=== PATIENT | female | born 1930 | race Caucasian/White ===

== ENCOUNTER 2018-05-03 17:44 | Inpatient (IN) | payer MEDICARE, OTHER ==
[~2018-05-03] VITALS: Ht 157.5 cm; Wt 72.6 kg
--- NOTE | 2018-05-03 18:12 | NUR ---
KEVIN MULLER SPOKE TO PT SISTER(SHANAE).
[2018-05-03] MEDS ORDERED: CARV6.252 PO (18:15)
[2018-05-03] MEDS ORDERED: TRAM50TA2 PO (18:15)
[2018-05-03] MEDS ORDERED: ONDA4TAB11 PO (18:15)
[2018-05-03] MEDS ORDERED: LISI2.5T2 PO (18:15)
[2018-05-03] MEDS ORDERED: LEVE500T9 PO (18:15)
[2018-05-03] MEDS ORDERED: ESOM40CA52 PO (18:15)
[2018-05-03] MEDS ORDERED: HUMULIN R SQ (18:15)
[2018-05-03] MEDS ORDERED: SIMV40TA5 PO (18:15)
[2018-05-03] MEDS ORDERED: FURO-151 PO (18:15)
[2018-05-03] MEDS ORDERED: MECL-102 PO (18:15)
[2018-05-03] MEDS ORDERED: FERR325T28 PO (18:15)
[2018-05-03] MEDS ORDERED: INSU100V7 SQ (18:15)
[2018-05-03] MEDS ORDERED: APIX5TAB PO (18:15)
[2018-05-03] MEDS ORDERED: LEVO125T8 PO (18:15)
[2018-05-03 18:21] LABS: BASOPHILS % (AUTO) 0.6 % (0.0-2.0); EOSINOPHILS # (AUTO) 0.1 K/uL (0.0-0.7); EOSINOPHILS % (AUTO) 2.6 % (0.0-7.0); HEMATOCRIT 34.8 % (31.2-41.9); HEMOGLOBIN 11.8 g/dL (10.9-14.3); LYMPHOCYTES # (AUTO) 1.4 K/uL (20.0-40.0); LYMPHOCYTES % (AUTO) 26.3 % (20.5-51.5); MEAN CORPUSCULAR HEMOGLOBIN 30.1 uug (24.7-32.8); MEAN CORPUSCULAR HGB CONC 34 g/dL (32.3-35.6); MONOCYTES # (AUTO) 0.8 K/uL (2.0-10.0); MONOCYTES % (AUTO) 15.7 % (0.0-11.0); NEUTROPHILS # (AUTO) 2.9 K/uL (1.8-8.9); NEUTROPHILS % (AUTO) 54.8 % (38.5-71.5); PLATELET COUNT (AUTO) 137 K/uL (179-408); RED BLOOD CELL COUNT(AUTO) 3.91 MIL/uL (3.63-4.92); WHITE BLOOD COUNT (AUTO) 5.3 K/uL (3.8-11.8)
[2018-05-03 18:24] LABS: *BILIRUBIN,URIN NEGATIVE (NEGATIVE); *BLOOD, URINE 1+ (NEGATIVE); *CLARITY,URINE SLIGHTLY CLOUDY (CLEAR); *COLOR,URINE YELLOW (YELLOW); *KETONES,URINE NEGATIVE (NEGATIVE); *PROTEIN,URINE NEGATIVE (NEGATIVE); *UROBILINOGEN,URINE 0.2 E.U./dl (NORMAL); LEUKOCYTE ESTERASE ,URINE 3+ (NEGATIVE); NITRITE, URINE NEGATIVE (NEGATIVE); UGLUCOSE NEGATIVE (NEGATIVE)
[2018-05-03 18:28] LABS: CARBON DIOXIDE 26 mmol/L (21-32); CHLORIDE 99 mmol/L (98-107); CREATININE 1.2 mg/dL (0.6-1.3); GLUCOSE 168 mg/dL (74-106); POTASSIUM 4.2 mmol/L (3.5-5.1); UREA NITROGEN, BLOOD 14 mg/dL (7-18)
[2018-05-03 18:29] LABS: BACTERIA,URINE FEW /HPF (NONE SEEN); SQUAMOUS EPITHELIAL CELL,UR MODERATE /HPF (NONE SEEN); WBC,URINE 20-50 /HPF (0-3)
--- NOTE | 2018-05-03 19:11 | NUR ---
REPORT TAKEN FROM DAY SHIFT RN. ASSUMING PT CARE AT THIS TIME.
--- NOTE | 2018-05-03 19:15 | NUR ---
DR CANALES SPEAKING TO DR MELTON.
[2018-05-03] MEDS ORDERED: CEFTRIAXONE 1 G in IV DEXTROSE 5% 50 ML IV ONE (19:30)
[2018-05-03] MEDS ORDERED: CEFTRIAXONE 1 G VIAL ONE (19:31)
[2018-05-03 20:17] LABS: NEUTROPHILS % (MANUAL) 51 % (42-75)
[2018-05-03 20:18] LABS: EOSINOPHILS % (MANUAL) 3 % (0-8); LYMPHOCYTES % (MANUAL) 32 % (20-40); MONOCYTES % (MANUAL) 14 % (2-10)
--- NOTE | 2018-05-03 21:06 | NUR ---
REPORT GIVEN TO AUBREY CHACON.
--- NOTE | 2018-05-03 21:33 | NUR ---
Pt. admitted to tele, under care of Dr. gutierrez Belongs List completed
[2018-05-03] MEDS ORDERED: DEXTROSE 50% 50 ML DISP.SYRIN IV PRN (21:45)
[2018-05-03] MEDS ORDERED: ONDANSETRON 4 MG/2 ML VIAL IV PRN (21:45)
[2018-05-03] MEDS ORDERED: ACETAMINOPHEN 325 MG TABLET PO PRN (21:45)
[2018-05-03] MEDS ORDERED: MAGNESIUM HYDROXIDE 30 ML LIQUID UDC PO PRN (21:45)
[2018-05-03] MEDS ORDERED: MECLIZINE HCL 25 MG TABLET PO SCH (21:45)
[2018-05-03] MEDS ORDERED: MELATONIN 3 MG TABLET PO PRN (21:45)
[2018-05-03 21:55] VITALS: BP 134/62
--- NOTE | 2018-05-03 22:00 | NUR ---
RECEIVED PT FROM ER VIA [facility] ACCOMPANIED BY PT'S SISTER,NEWLY ADMISSION W/DX OF UTI,PT'S A/A/O X3;GENERALIZED WEAKNESS,[employer] [place] SPEAKER,ABLT TO UNDERSTAND A LITTLE OF SLOVENIAN,MOSTLY VALHIPOLITO(PT'S SISTER) GAVE INFORMATION. PT C/O UNCOMFORTABLE AT THE RIGHT AC IV SITE,IT'S SECURED FOR IV ABX MD'S ORDER PLUS PT'S VERY HARD STICK(HX OF PICC LINE INSERTION IN THE PAST);EDUCATED TO PT AND HER SISTER BUT PT'S VERY ANXIOUS ON/OFF.TELEMETRY'S APPLIED AT THIS TIME,IT'S A.FIB NOTED. AT 23:10 'S HERE AT THIS TIME AND DISCUSSED THE PLAN OF CARE TO THEM;THEY VERBALIZED UNDERSTANDING NOTED.
[2018-05-03] MEDS: TRAMADOL HCL 50 MG TABLET PO PRN (23:38)
[2018-05-04] VITALS: BP 140/73
--- NOTE | 2018-05-04 00:35 | NUR ---
CALLED WHO'S ON SITE SOIL EVALUATOR RASTA AND NOTIFIED MD ABOUT PT'S CONDITION,NEW ORDER'S GIVEN:CARRIED IT OUT NOTED. EXPLAINED TO PT'S SISTER WHO'S AT THE BEDSIDE AT THIS TIME;SHE VERBALIZED UNDERSTANDING AND AGREED TO GIVE MEDICATION TO PT.
[2018-05-04] MEDS ORDERED: LORAZEPAM 2 MG/1 ML VIAL IV PRN (00:45)
--- NOTE | 2018-05-04 02:00 | NUR ---
PT'S STILL AWAKE AND TRIED TO REMOVE IV SITE AND TELEMETRY AT THIS TIME,PT'S SISTER'S ALREADY WENT HOME.REORIENTATION TO PT FOR PLACE AND TIME BUT PT'S STILL CONFUSED.SAFETY RENDER AND SIT W/PATIENT.NO RESPIRATORY DISTRESS NOTED.
[2018-05-04 04:00] VITALS: BP 121/49
--- NOTE | 2018-05-04 04:35 | NUR ---
PT'S STILL AWAKE,ASSISTED TO CHANGE DIAPER;PT'S SCREAMING AND COMBATIVE WHILE GETTING CARE,AFTER THAT SHE' CALM.SECURED THE IV SITE W/KERLIX.CONTINUED MONITORING TO PT.BED ALARM'S ON.
--- NOTE | 2018-05-04 06:10 | NUR ---
PT REFUSED TO GET MEDICATION AND ACCUCHECK THIS MORNING,SHE'S SCREAMING AND COMBATIVE NOTED,WILL WAIT UNTIL HER SISTER COMES TO VISIT HER IN THE MORNING(THAT'S HER SISTER TOLD ME BEFORE SHE LEFT HOME LAST NIGHT).GAVE PT FOR 10 MINUTES,SHE'S CALM AND ABLE TO GO BACK TO SLEEP.BED ALARM'S ON. I TOLD GREETER TO COME BACK FOR BLOOD TEST MD'S ORDER LATER,WILL CALL LAB WHEN PT'S SISTER COMES NOTED. OTHERWISE,PT'S CALM AND ABLE TO SLEEP THIS MORNING(STARTED AROUND 5 AM),PT SLEPT ONLY 2 HOURS SINCE ADMISSION NOTED.HEP LOCK SITE'S INTACT.NO DISTRESS NOTED.CONTINUED MONITORING TO PT.
[2018-05-04] MEDS: BLOOD SUGAR DIAGNOSTIC 1 EACH STRIP VI SCH ×4 (06:11→20:53)
[2018-05-04] MEDS: PANTOPRAZOLE SODIUM 40 MG TABLET.DR PO SCH (06:11)
[2018-05-04] MEDS: LEVOTHYROXINE SODIUM 125 MCG TABLET PO SCH (06:11)
--- NOTE | 2018-05-04 08:00 | NUR ---
AWAKE ORT X1 COOPERATE WELL AT THIS TIME NO PAIN OR ACUTE DISTRESS RA O2 SAT WAS 955 on aspiration and fall precaution bed alarm on and call light within reach Addendum: 05/04/18 at 0954 by LEOLA GABRIEL RN o2 sat was 95%
[2018-05-04 08:23] LABS: BASOPHILS % (AUTO) 0.6 % (0.0-2.0); EOSINOPHILS # (AUTO) 0.1 K/uL (0.0-0.7); EOSINOPHILS % (AUTO) 1.5 % (0.0-7.0); HEMATOCRIT 35.2 % (31.2-41.9); LYMPHOCYTES # (AUTO) 0.6 K/uL (20.0-40.0); LYMPHOCYTES % (AUTO) 10.3 % (20.5-51.5); MEAN CORPUSCULAR HEMOGLOBIN 30.3 uug (24.7-32.8); MEAN CORPUSCULAR HGB CONC 34 g/dL (32.3-35.6); MEAN CORPUSCULAR VOLUME 88.9 fL (75.5-95.3); MONOCYTES # (AUTO) 0.5 K/uL (2.0-10.0); MONOCYTES % (AUTO) 9.1 % (0.0-11.0); NEUTROPHILS # (AUTO) 4.5 K/uL (1.8-8.9); NEUTROPHILS % (AUTO) 78.5 % (38.5-71.5); PLATELET COUNT (AUTO) 119 K/uL (179-408); RED BLOOD CELL COUNT(AUTO) 3.95 MIL/uL (3.63-4.92); WHITE BLOOD COUNT (AUTO) 5.7 K/uL (3.8-11.8)
[2018-05-04] MEDS: LEVETIRACETAM 500 MG TABLET PO SCH (08:55)
[2018-05-04] MEDS: TRAMADOL HCL 50 MG TABLET PO PRN ×2 (08:56→19:40)
[2018-05-04] MEDS: FERROUS SULFATE 325 MG TABEC PO SCH ×2 (08:56→16:58)
[2018-05-04] MEDS: FUROSEMIDE 40 MG TABLET PO SCH (08:56)
[2018-05-04] MEDS: CARVEDILOL 6.25 MG TABLET PO SCH ×2 (08:56→16:58)
[2018-05-04] MEDS: LISINOPRIL 5 MG TABLET PO SCH (08:57)
[2018-05-04 09:16] LABS: ALANINE AMINOTRANSFERASE 11 U/L (14-59); ALKALINE PHOSPHATASE 77 U/L (50-136); ASPARTATE AMINOTRANSFERASE 14 U/L (15-37); BILIRUBIN,TOTAL 0.4 mg/dL (0.2-1.0); CHLORIDE 103 mmol/L (98-107); CHOLESTEROL 108 mg/dL (<200); CREATININE 1.2 mg/dL (0.6-1.3); GLUCOSE 266 mg/dL (74-106); HDL CHOLESTEROL 48 mg/dL (40-60); MAGNESIUM 1.7 mg/dL (1.8-2.4); PHOSPHOROUS 4.2 mg/dL (2.5-4.9); POTASSIUM 4.6 mmol/L (3.5-5.1); TOTAL PROTEIN, SERUM 6.2 g/dL (6.4-8.2); TRIGLYCERIDES 105 MG/DL (30-150); UREA NITROGEN, BLOOD 12 mg/dL (7-18)
[2018-05-04 09:59] LABS: CARBON DIOXIDE 21 mmol/L (21-32)
--- NOTE | 2018-05-04 10:00 | NUR ---
PHYSICAL THERAPY WAS HERE AND EVAL /OOB AMBULATE DOING OK BUT SEEM TO BE WEAK AND SLEEPY ASSIST BACK TO BED RESTING WELLCLOSED OBSERVATION
[2018-05-04 10:22] LABS: THYROID STIMULATING HORMONE 0.283 mIU/mL (0.358-3.740)
[2018-05-04 11:33] VITALS: BP 114/37
[2018-05-04] MEDS: INSULIN REGULAR, HUMAN 300 UNIT/3 ML VIAL SQ PRN ×3 (11:49→20:56)
[2018-05-04] MEDS ORDERED: APIXABAN 5 MG TABLET PO ONE (12:15)
--- NOTE | 2018-05-04 14:00 | NUR ---
START NEW IV LINE ON LEFT WRIST #22 AND D/C RT AC HL
[2018-05-04 15:30] VITALS: BP 114/82
--- NOTE | 2018-05-04 17:30 | NUR ---
STABLE HEMODYNAMIC STATUS NO ACUTE DISTRESS PAIN UNDER CONTROL SAFETY MEASURE PROVIDED CALL DELGADO IN REACH
[2018-05-04] MEDS ORDERED: CEFTRIAXONE 1 G in IV DEXTROSE 5% 50 ML IV SCH (19:00)
[2018-05-04] MEDS: SIMVASTATIN 40 MG TABLET PO SCH (19:40)
[2018-05-04] MEDS: DOCUSATE SODIUM 100 MG CAPSULE PO SCH (19:41)
[2018-05-04 20:00] VITALS: BP 107/54
--- NOTE | 2018-05-04 20:30 | NUR ---
Received patient awake alert but confused, no SOB ramiro chest pain. c/o bilateral knee & leg discomfort. Family (her sister) Tramadol po given. Patient took all her routine night meds w/ the help of her sister. A-fib on the monitor.
[2018-05-04] MEDS: INSULIN GLARGINE,HUM 300 UNITS/3 ML CARTRIDGE SQ SCH (20:55)
[2018-05-04] MEDS ORDERED: APIXABAN 5 MG TABLET PO SCH (21:00)
--- NOTE | 2018-05-04 22:45 | NUR ---
Confused & agitated, patient removed her heart monitor patch, & refusing to place it back. Called MD aeronautical engineering professor (Dr. Mosqueda) for PRN meds. Orders received.
[2018-05-04] MEDS: LORAZEPAM 2 MG/1 ML VIAL IV PRN (23:04)
--- NOTE | 2018-05-04 23:39 | NUR ---
Ativan 1mg IVP was given & observed. Patient remains agitated combative & screaming at this time. Refusing campus monitor to put back on. Fall precaution observed
--- NOTE | 2018-05-05 00:40 | NUR ---
Patient still awake & agitated. Ativan 1 mg IVP didn't work.
--- NOTE | 2018-05-05 02:34 | NUR ---
No change, remains awake anxious & agitated. closely monitored. A-fib on the monitor.
--- NOTE | 2018-05-05 03:10 | NUR ---
Snacks provided, patient tolerated crackers & milk.
[2018-05-05 04:00] VITALS: BP 139/65
--- NOTE | 2018-05-05 05:00 | NUR ---
Sponge bath provided. Patient fell asleep post sponge bath. No acute resp distress, vital signs stable. A-fib on the monitor.
[2018-05-05] MEDS: BLOOD SUGAR DIAGNOSTIC 1 EACH STRIP VI SCH ×4 (06:09→21:07)
[2018-05-05] MEDS: PANTOPRAZOLE SODIUM 40 MG TABLET.DR PO SCH (06:10)
[2018-05-05] MEDS: LEVOTHYROXINE SODIUM 125 MCG TABLET PO SCH (06:11)
--- NOTE | 2018-05-05 07:15 | NUR ---
Patient remains asleep. No distress noted. Endorsed to morning nurse AUBREY Gomez.
[2018-05-05 07:40] LABS: CARBON DIOXIDE 27 mmol/L (21-32); CHLORIDE 99 mmol/L (98-107); CREATININE 1.1 mg/dL (0.6-1.3); GLUCOSE 209 mg/dL (74-106); MAGNESIUM 1.7 mg/dL (1.8-2.4); PHOSPHOROUS 4.3 mg/dL (2.5-4.9); POTASSIUM 4.2 mmol/L (3.5-5.1); UREA NITROGEN, BLOOD 16 mg/dL (7-18)
[2018-05-05 07:55] VITALS: BP 105/61
[2018-05-05] MEDS ORDERED: APIXABAN 5 MG TABLET PO ONE (08:30)
[2018-05-05 08:44] LABS: BASOPHILS % (AUTO) 0.5 % (0.0-2.0); EOSINOPHILS # (AUTO) 0.3 K/uL (0.0-0.7); HEMATOCRIT 32.9 % (31.2-41.9); HEMOGLOBIN 11.2 g/dL (10.9-14.3); LYMPHOCYTES # (AUTO) 1.2 K/uL (20.0-40.0); LYMPHOCYTES % (AUTO) 22.7 % (20.5-51.5); MEAN CORPUSCULAR HEMOGLOBIN 30.1 uug (24.7-32.8); MEAN CORPUSCULAR HGB CONC 34 g/dL (32.3-35.6); MEAN CORPUSCULAR VOLUME 88.5 fL (75.5-95.3); MONOCYTES # (AUTO) 1.2 K/uL (2.0-10.0); MONOCYTES % (AUTO) 23.9 % (0.0-11.0); NEUTROPHILS # (AUTO) 2.4 K/uL (1.8-8.9); NEUTROPHILS % (AUTO) 47.9 % (38.5-71.5); PLATELET COUNT (AUTO) 100 K/uL (179-408); RED BLOOD CELL COUNT(AUTO) 3.72 MIL/uL (3.63-4.92); WHITE BLOOD COUNT (AUTO) 5.1 K/uL (3.8-11.8)
[2018-05-05] MEDS: FERROUS SULFATE 325 MG TABEC PO SCH ×2 (08:58→16:56)
[2018-05-05] MEDS: LEVETIRACETAM 500 MG TABLET PO SCH (08:58)
[2018-05-05] MEDS: CARVEDILOL 6.25 MG TABLET PO SCH ×2 (08:59→17:00)
[2018-05-05] MEDS: LISINOPRIL 5 MG TABLET PO SCH (09:00)
[2018-05-05] MEDS: FUROSEMIDE 40 MG TABLET PO SCH (09:01)
[2018-05-05] MEDS: INSULIN REGULAR, HUMAN 300 UNIT/3 ML VIAL SQ PRN ×4 (09:02→21:14)
[2018-05-05 09:23] LABS: BAND % (MANUAL) 1 % (0-10); BASOPHILS % (MANUAL) 3 % (0-2); EOSINOPHILS % (MANUAL) 4 % (0-8); LYMPHOCYTES % (MANUAL) 25 % (20-40); METAMYELOCYTES % 1 % (0-1); MONOCYTES % (MANUAL) 22 % (2-10); NEUTROPHILS % (MANUAL) 44 % (42-75)
--- NOTE | 2018-05-05 11:21 | NUR ---
Pt asleep, tolerated breakfast and morning meds well. Remains calm and cooperative.
[2018-05-05 12:00] VITALS: BP 92/49
[2018-05-05] MEDS ORDERED: MEROPENEM 1 G in IV NORMAL SALINE 100 ML IV SCH ×2 (14:00→21:00)
[2018-05-05 16:41] VITALS: BP 99/53
[2018-05-05] MEDS: APIXABAN 5 MG TABLET PO SCH (16:56)
[2018-05-05] MEDS: MAGNESIUM SULFATE/D5W 100 ML IV SCH (18:05)
--- NOTE | 2018-05-05 18:10 | NUR ---
IV INFILTRATE AT THIS TIME AND PATIENT REFUSED TO RESTART IT NOW ,WILL TRY LATER
--- NOTE | 2018-05-05 18:30 | NUR ---
HEMODYNAMIC STATUS STABLE NO ACUTE DISTRESS ,PAIN UNDER CONTROL SAFETY MEASURE PROVIDED AND CALL LIGHT IN REACH SITTER 1:1 AT BEDSIDE
[2018-05-05] MEDS: TRAMADOL HCL 50 MG TABLET PO PRN (18:59)
--- NOTE | 2018-05-05 19:28 | NUR ---
Received patient awake alert pleasantly confused at this time. No SOB patient denies chest pain. Tele shows A-fib HR 74. IV line infiltrated.
[2018-05-05 19:45] VITALS: BP 134/76
--- NOTE | 2018-05-05 20:15 | NUR ---
Attempted to re-start new IV line x2 but unsuccessful. Paged Kelsi Huber FILM COATER. Orders received.
[2018-05-05] MEDS: SIMVASTATIN 40 MG TABLET PO SCH (21:07)
[2018-05-05] MEDS: DOCUSATE SODIUM 100 MG CAPSULE PO SCH (21:07)
[2018-05-05] MEDS: INSULIN GLARGINE,HUM 300 UNITS/3 ML CARTRIDGE SQ SCH (21:14)
--- NOTE | 2018-05-05 21:26 | NUR ---
Patient just urinated. Incontinence care provided. Bladder scan done, PVR showed 4ml. Printed result inserted in chart.
[2018-05-05] MEDS: LORAZEPAM 2 MG/1 ML VIAL IV PRN (22:01)
--- NOTE | 2018-05-05 23:30 | NUR ---
Awaiting for PICC line insertion. No IV access until now. Magnesium 2 bags & scheduled Merrem antibiotic not administered,
[2018-05-05 23:46] VITALS: BP 128/55
[2018-05-06 03:49] VITALS: BP 127/57
[2018-05-06 06:20] LABS: BASOPHILS % (AUTO) 0.6 % (0.0-2.0); EOSINOPHILS # (AUTO) 0.2 K/uL (0.0-0.7); EOSINOPHILS % (AUTO) 4.2 % (0.0-7.0); HEMATOCRIT 36.6 % (31.2-41.9); HEMOGLOBIN 12.5 g/dL (10.9-14.3); LYMPHOCYTES # (AUTO) 1.3 K/uL (20.0-40.0); LYMPHOCYTES % (AUTO) 25.6 % (20.5-51.5); MEAN CORPUSCULAR HEMOGLOBIN 30.4 uug (24.7-32.8); MEAN CORPUSCULAR HGB CONC 34 g/dL (32.3-35.6); MEAN CORPUSCULAR VOLUME 88.7 fL (75.5-95.3); MONOCYTES # (AUTO) 0.8 K/uL (2.0-10.0); MONOCYTES % (AUTO) 16.2 % (0.0-11.0); NEUTROPHILS # (AUTO) 2.6 K/uL (1.8-8.9); NEUTROPHILS % (AUTO) 53.4 % (38.5-71.5); PLATELET COUNT (AUTO) 124 K/uL (179-408); RED BLOOD CELL COUNT(AUTO) 4.12 MIL/uL (3.63-4.92); WHITE BLOOD COUNT (AUTO) 4.9 K/uL (3.8-11.8)
[2018-05-06] MEDS: MAGNESIUM SULFATE/D5W 100 ML IV SCH (06:25)
[2018-05-06] MEDS: LEVOTHYROXINE SODIUM 125 MCG TABLET PO SCH (06:25)
[2018-05-06] MEDS: PANTOPRAZOLE SODIUM 40 MG TABLET.DR PO SCH (06:25)
--- NOTE | 2018-05-06 06:25 | NUR ---
Remains no IV line. Re-tried to insert new heplock on left hand w/ [id number], successfully inserted it after 2 attempts. Magnesium sulfate 2 bags completed. Merrem antibiotic resumed. Patient resting comfortably at this time, A-fib on the monitor.
[2018-05-06 06:32] LABS: CARBON DIOXIDE 28 mmol/L (21-32); CHLORIDE 98 mmol/L (98-107); CREATININE 1.1 mg/dL (0.6-1.3); MAGNESIUM 1.7 mg/dL (1.8-2.4); PHOSPHOROUS 4.6 mg/dL (2.5-4.9); POTASSIUM 4.4 mmol/L (3.5-5.1); UREA NITROGEN, BLOOD 19 mg/dL (7-18)
[2018-05-06] MEDS: BLOOD SUGAR DIAGNOSTIC 1 EACH STRIP VI SCH ×3 (06:36→16:52)
[2018-05-06 06:42] LABS: GLUCOSE 318 mg/dL (74-106)
[2018-05-06 06:56] LABS: NEUTROPHILS % (MANUAL) 0 % (42-75)
[2018-05-06 08:15] VITALS: BP 140/74
[2018-05-06] MEDS: FERROUS SULFATE 325 MG TABEC PO SCH ×2 (09:00→16:59)
[2018-05-06] MEDS: INSULIN REGULAR, HUMAN 300 UNIT/3 ML VIAL SQ PRN ×3 (09:18→17:06)
--- NOTE | 2018-05-06 09:22 | NUR ---
Pt does not want to wake up at this time, unable to give PO meds, will continue to monitor and try again
[2018-05-06] MEDS: LEVETIRACETAM 500 MG TABLET PO SCH (11:38)
[2018-05-06] MEDS: LISINOPRIL 5 MG TABLET PO SCH (11:38)
[2018-05-06] MEDS: FUROSEMIDE 40 MG TABLET PO SCH (11:38)
[2018-05-06] MEDS: APIXABAN 5 MG TABLET PO SCH (11:42)
[2018-05-06] MEDS: CARVEDILOL 6.25 MG TABLET PO SCH ×2 (11:42→16:52)
[2018-05-06 11:47] VITALS: BP 164/77
--- NOTE | 2018-05-06 12:40 | NUR ---
Stefanie for PICC line was called, left message. Sarai Mauricesupervisor dock aware.
[2018-05-06] MEDS ORDERED: MERO1VIA IV (12:50)
[2018-05-06] MEDS ORDERED: QUET25TA PO (12:50)
--- NOTE | 2018-05-06 13:30 | NUR ---
No return call from Stefanie at this time, contacting Med. air traffic supervisor aware.
[2018-05-06] MEDS ORDERED: MAGNESIUM OXIDE 400 MG TABLET PO ONE (15:30)
--- NOTE | 2018-05-06 15:30 | NUR ---
Prudence RN here to start PICC line
[2018-05-06 16:00] VITALS: BP 104/54
[2018-05-06 16:52] VITALS: BP 104/54
--- NOTE | 2018-05-06 17:21 | NUR ---
Discharge ordered after picc line placement. Patient aware as well at sister who is at bedside, agreeable with plan. PICC in RIVER, double lumen. Report called to hima rios, pt has no belongings, all sent home with sister.
--- NOTE | 2018-05-06 17:51 | NUR ---
ambulance here to take patient
[2018-05-06] MEDS ORDERED: MEROPENEM 1 G in IV NORMAL SALINE 100 ML IV SCH (18:00)
[2018-05-06] MEDS ORDERED: QUETIAPINE FUMARATE 25 MG TABLET PO SCH (21:00)
== END 2018-05-06 17:45 | DRG 871 ==
LOC: ER 17:46 → TELE 21:24
PROVIDERS: ADMIT Internal Medicine; ATTEND Internal Medicine
DX: A41.9 Sepsis, unspecified organism (principal); G93.41 Metabolic encephalopathy; N39.0 Urinary tract infection, site not specified; E44.1 Mild protein-calorie malnutrition; I50.30 Unspecified diastolic (congestive) heart failure; G40.909 Epilepsy, unspecified, not intractable, without status epilepticus; B96.20 Unspecified Escherichia coli [E. coli] as the cause of diseases classified elsewhere; E03.9 Hypothyroidism, unspecified; E11.65 Type 2 diabetes mellitus with hyperglycemia; E78.5 Hyperlipidemia, unspecified; E83.42 Hypomagnesemia; I11.0 Hypertensive heart disease with heart failure; I48.91 Unspecified atrial fibrillation; Z79.01 Long term (current) use of anticoagulants; K21.9 Gastro-esophageal reflux disease without esophagitis; R53.1 Weakness; E88.09 Other disorders of plasma-protein metabolism, not elsewhere classified; Z16.12 Extended spectrum beta lactamase (ESBL) resistance; Z68.29 Body mass index [BMI] 29.0-29.9, adult; Z79.4 Long term (current) use of insulin
CPT/HCPCS: 36415; 36569; 51702; 70030-TC; 71045; 82306; 83735; 84100; 84443; 85025; 87077; 87086; 93005; 93307; 97110; 97116; 97530; A4663; C1751; J0696; J1815; J2060; J2185; J3475; J3490; J7040; J7060

== ENCOUNTER 2019-05-28 18:30 | Emergency (ER) | payer MEDICARE, OTHER ==
[~2019-05-28] VITALS: Ht 162.6 cm; Wt 95.3 kg
[~2019-05-28 18:30] MED LIST: APIX5TAB PO; CARV6.252 PO; ESOM40CA52 PO; FERR325T28 PO; FURO-151 PO; HUMULIN R SQ; INSU100V7 SQ; LEVE500T9 PO; LEVO125T8 PO; LISI2.5T2 PO; MECL-102 PO; MERO1VIA IV; ONDA4TAB11 PO; QUET25TA PO; SIMV40TA5 PO; TRAM50TA2 PO
--- NOTE | 2019-05-28 19:27 | NUR ---
REC'D REPORT FROM NURSE ASSESS PT IS ALERT AND ORIENTED AND APPRORIATE OVERALL APPEARANCES FAIR DENIES PAIN/DISCOMFORT HER SISTER AT BEDSIDE, PT NOW IS BEING TAKEN TO RADIOLOGY DEPT
[2019-05-28] MEDS ORDERED: ATOR80TA PO (19:39)
[2019-05-28] MEDS ORDERED: DOCU-141 PO (19:39)
[2019-05-28] MEDS ORDERED: ALBU2.5V13 IH (19:39)
[2019-05-28] MEDS ORDERED: BLOO-360 IN (19:39)
[2019-05-28] MEDS ORDERED: LACT10SO PO (19:39)
[2019-05-28] MEDS ORDERED: IPRA0.2S48 IH (19:39)
[2019-05-28] MEDS ORDERED: HYDR28.461 TP (19:39)
[2019-05-28] MEDS ORDERED: LACT1TAB12 PO (19:39)
--- NOTE | 2019-05-28 19:42 | NUR ---
PT IS BACK WITHOUT INCIDENT COMFORT AND SAFETY MAINTAINED
--- NOTE | 2019-05-28 20:39 | NUR ---
AMBULANCE WAS CALLED TALKED WITH ELHAM THE PT SECURITY SYSTEM ENGINEER TIME [id number] CONFIRMATION NUMBER [id number]
--- NOTE | 2019-05-28 21:30 | NUR ---
PT REMAINS CALM AND RELAXED WITHOUT INCIDENT HER SISTER AT HER SIDE THEY ARE BOTH AWARE OF THE AMBULANCE AND THE EXPECTED DECATIZER TIME
--- NOTE | 2019-05-28 22:25 | NUR ---
PT WAS TRANSFER BACK TO THE LONGTERM VIA AMBULANCE NO C/O PAIN/DISCOMFORT CONDITION REMAINS STABLE SISTER IS PT. DISCHARGE INSTRUCTION GIVEN [facility] NOTIFIED
[2019-05-28 22:30] VITALS: BP 124/44
== END 2019-05-28 22:31 | disposition home or self-care (01) ==
LOC: ER 18:33
DX: M25.551 Pain in right hip (principal); M25.561 Pain in right knee; R51 Headache; I10 Essential (primary) hypertension; E78.5 Hyperlipidemia, unspecified; I48.91 Unspecified atrial fibrillation; K21.9 Gastro-esophageal reflux disease without esophagitis; E11.9 Type 2 diabetes mellitus without complications; E03.9 Hypothyroidism, unspecified; Z88.8 Allergy status to other drugs, medicaments and biological substances; Z79.899 Other long term (current) drug therapy; Z79.4 Long term (current) use of insulin; W18.39XA Other fall on same level, initial encounter; Y93.89 Activity, other specified; Y92.89 Other specified places as the place of occurrence of the external cause; Y99.8 Other external cause status
CPT/HCPCS: 70450; 72125; 72192; A4663

== ENCOUNTER 2019-10-25 11:00 | Emergency (ER) | payer MEDICARE, OTHER ==
[~2019-10-25] VITALS: Ht 154.9 cm; Wt 77.6 kg
[~2019-10-25 11:00] MED LIST changes: +ALBU2.5V13 IH; +ATOR80TA PO; +BLOO-360 IN; +DOCU-141 PO; -ESOM40CA52 PO; -HUMULIN R SQ; +HYDR28.461 TP; +IPRA0.2S48 IH; +LACT10SO PO; +LACT1TAB12 PO; -LEVO125T8 PO; -LISI2.5T2 PO; -MECL-102 PO; -MERO1VIA IV; -ONDA4TAB11 PO; -QUET25TA PO; -SIMV40TA5 PO; -TRAM50TA2 PO
--- NOTE | 2019-10-25 11:10 | NUR ---
PT IS IN ROOM #2A. DR RUSSELL EVALUATED THE PT.
[2019-10-25] MEDS ORDERED: ASCO500C16 PO (11:27)
[2019-10-25] MEDS ORDERED: MULT1TAB73 PO (11:27)
[2019-10-25] MEDS ORDERED: MAGN400T26 PO (11:27)
[2019-10-25] MEDS ORDERED: TRAM50TA2 PO (11:27)
[2019-10-25] MEDS ORDERED: ONDA8TAB6 PO (11:27)
[2019-10-25] MEDS ORDERED: MECL-159 PO (11:27)
[2019-10-25] MEDS ORDERED: OMEP40CA13 PO (11:27)
[2019-10-25] MEDS ORDERED: LEVO125T PO (11:27)
[2019-10-25 11:28] LABS: BASOPHILS % (AUTO) 0.7 % (0.0-2.0); EOSINOPHILS # (AUTO) 0.2 K/uL (0.0-0.7); EOSINOPHILS % (AUTO) 3.5 % (0.0-7.0); HEMATOCRIT 33.5 % (31.2-41.9); HEMOGLOBIN 11.4 g/dL (10.9-14.3); LYMPHOCYTES # (AUTO) 1.2 K/uL (20.0-40.0); LYMPHOCYTES % (AUTO) 28.2 % (20.5-51.5); MEAN CORPUSCULAR HEMOGLOBIN 31.6 uug (24.7-32.8); MEAN CORPUSCULAR HGB CONC 34 g/dL (32.3-35.6); MEAN CORPUSCULAR VOLUME 93.1 fL (75.5-95.3); MONOCYTES # (AUTO) 0.7 K/uL (2.0-10.0); MONOCYTES % (AUTO) 15.8 % (0.0-11.0); NEUTROPHILS # (AUTO) 2.2 K/uL (1.8-8.9); NEUTROPHILS % (AUTO) 51.8 % (38.5-71.5); PLATELET COUNT (AUTO) 118 K/uL (179-408); WHITE BLOOD COUNT (AUTO) 4.3 K/uL (3.8-11.8)
[2019-10-25 11:34] LABS: CREATININE 1.1 mg/dL (0.6-1.3); POTASSIUM 4.5 mmol/L (3.5-5.1)
[2019-10-25 11:40] LABS: BILIRUBIN,DIRECT 0.2 mg/dL (0.0-0.2); BILIRUBIN,TOTAL 0.7 mg/dL (0.2-1.0); TOTAL PROTEIN, SERUM 6.4 g/dL (6.4-8.2)
[2019-10-25 12:10] LABS: EOSINOPHILS % (MANUAL) 4 % (0-8); LYMPHOCYTES % (MANUAL) 34 % (20-40); MONOCYTES % (MANUAL) 10 % (2-10); NEUTROPHILS % (MANUAL) 52 % (42-75)
--- NOTE | 2019-10-25 13:15 | NUR ---
[facility] WAS CALLED TO TRANSFER PT BACK TO HER NURSING FACILITY ACCORDING TO DR RUSSELL ORDER. MARTA IS 60 MINUTES. PT IS RESTING IN BED COMFORTABLY NO S/S OF DISTRESS , RELATIVES AT THE BEDSIDE.
[2019-10-25 15:22] VITALS: BP 131/79
--- NOTE | 2019-10-25 15:22 | NUR ---
PT WAS D/C'd TO HOME. D/C INSTRUCTIONS GIVEN TO THE PT.
== END 2019-10-25 15:23 | disposition home or self-care (01) ==
LOC: ER 11:00
DX: S00.03XA Contusion of scalp, initial encounter (principal); I48.91 Unspecified atrial fibrillation; R79.89 Other specified abnormal findings of blood chemistry; E11.9 Type 2 diabetes mellitus without complications; K21.9 Gastro-esophageal reflux disease without esophagitis; I50.9 Heart failure, unspecified; E03.9 Hypothyroidism, unspecified; I10 Essential (primary) hypertension; Z88.5 Allergy status to narcotic agent; Z88.2 Allergy status to sulfonamides; Z88.8 Allergy status to other drugs, medicaments and biological substances; Z79.4 Long term (current) use of insulin; Z79.899 Other long term (current) drug therapy; W19.XXXA Unspecified fall, initial encounter; Y93.89 Activity, other specified; Y92.89 Other specified places as the place of occurrence of the external cause; Y99.8 Other external cause status
CPT/HCPCS: 36415; 70030-TC; 70450; 71045; 72125; 85025; 85730; 93005; A4663